=== PATIENT | male | born 1940 | race Caucasian/White ===

== ENCOUNTER → 2018-07-15 | Outpatient (REF) | payer MEDICARE ==
[2018-07-15 08:43] LABS: ALBUMIN 3.8 g/dL (3.2-5.0); ALKALINE PHOSPHATASE 97 u/l (38-126); ANION GAP 17 (6-22 (CALC)); BILIRUBIN, TOTAL 0.6 mg/dL (0.0-1.4); BUN 22 mg/dL (8-23); BUN/CREATININE RATIO 18 (12-20 (CALC)); CALCULATED LDLCHOLESTEROL 48 mg/dL (62-129 (CALC)); CARBON DIOXIDE 26 mmol/l (22-30); CHLORIDE 100 mmol/l (95-108); CHOLESTEROL HDL RATIO 3.3 (<4.4 (CALC)); CREATININE 1.2 mg/dL (0.7-1.3); GFR 58 ML/MIN (>=60 (CALC)); GFR FOR AFR.AMER. > 60 ML/MIN (>=60 (CALC)); HDL CHOLESTEROL 30 mg/dL (>=40); SGOT/AST 21 u/l (19-48); SODIUM 138 mmol/l (137-146); TOTAL CHOLESTEROL 101 mg/dl (0-199); TOTAL PROTEIN 6.3 g/dL (6.3-8.2); TOTAL TRIGLYCERIDES 112 mg/dl (30-149); VLDL CHOLESTROL 22 mg/dl (0-38 (CALC))
== END | disposition home or self-care (01) ==
LOC: LAB 06:46
PROVIDERS: ATTEND Nurse Practitioner Adult Health
DX: E11.59 Type 2 diabetes mellitus with other circulatory complications (principal)

== ENCOUNTER 2020-02-04 09:55 | Emergency (ER) | payer MEDICARE ==
[~2020-02-04] VITALS: Ht 167.6 cm; Wt 77.0 kg
[~2020-02-04 09:55] MED LIST: ATORVASTATIN CA40 MG PO; CENTRUM SILVER ULTR1 PO; COREG25 MG PO; EQ ASPIRIN ADUL81 MG PO; FOLATE400 MCG PO; GLIPIZIDE5 MG PO; IRON (FERROUS S50 MG PO; LISINOPRIL20 MG PO; METFORMIN500 M2 PO; NORVASC2.5 M1 PO; TURMERI1 PO; TYLENOL PM PO
[2020-02-04 11:35] VITALS: BP 176/78
== END 2020-02-04 12:34 | disposition left against medical advice (07) ==
LOC: ED 09:55
DX: R07.89 Other chest pain (principal); E11.9 Type 2 diabetes mellitus without complications; I10 Essential (primary) hypertension; Z95.1 Presence of aortocoronary bypass graft; Z79.84 Long term (current) use of oral hypoglycemic drugs; Z91.19 Patient's noncompliance with other medical treatment and regimen

== ENCOUNTER 2020-10-14 17:04 | Emergency (ER) | payer MEDICARE ==
[~2020-10-14] VITALS: Ht 167.6 cm; Wt 77.2 kg
[2020-10-14 18:41] VITALS: BP 152/98
== END 2020-10-14 18:28 | disposition home or self-care (01) ==
LOC: ED 17:04
DX: T81.31XA Disruption of external operation (surgical) wound, not elsewhere classified, initial encounter (principal); E11.9 Type 2 diabetes mellitus without complications; Y83.8 Other surgical procedures as the cause of abnormal reaction of the patient, or of later complication, without mention of misadventure at the time of the procedure; Z85.820 Personal history of malignant melanoma of skin; Z79.84 Long term (current) use of oral hypoglycemic drugs

== ENCOUNTER 2020-12-10 11:24 | Emergency (ER) | payer MEDICARE ==
[2020-12-10] MEDS ORDERED: KEFLEX500 MG PO (12:23)
[2020-12-10 12:30] VITALS: BP 152/90
== END 2020-12-10 12:30 | disposition home or self-care (01) ==
LOC: ED 11:24
DX: L02.214 Cutaneous abscess of groin (principal); I10 Essential (primary) hypertension; E11.9 Type 2 diabetes mellitus without complications; Z79.84 Long term (current) use of oral hypoglycemic drugs; Z85.820 Personal history of malignant melanoma of skin

== ENCOUNTER 2022-01-30 21:27 | Emergency (ER) | payer MEDICARE ==
[~2022-01-30] VITALS: Ht 167.6 cm; Wt 75.0 kg
[~2022-01-30 21:27] MED LIST changes: +KEFLEX500 MG PO
[2022-01-31 02:00] VITALS: BP 110/76
== END 2022-01-31 08:00 | disposition home or self-care (01) ==
LOC: ED 21:27
DX: R68.83 Chills (without fever) (principal); C61 Malignant neoplasm of prostate; C79.9 Secondary malignant neoplasm of unspecified site; I10 Essential (primary) hypertension; E11.9 Type 2 diabetes mellitus without complications; X38.XXXA Flood, initial encounter; X37.0XXA Hurricane, initial encounter; Y92.810 Car as the place of occurrence of the external cause

== ENCOUNTER 2022-08-27 07:44 | Emergency (ER) | payer MEDICARE ==
[~2022-08-27] VITALS: Ht 167.6 cm; Wt 70.3 kg
[2022-08-27 09:47] LABS: URINE BILIRUBIN - DIPSTICK SMALL (NEGATIVE); URINE BLOOD DIPSTICK LARGE (NEGATIVE); URINE GLUCOSE - DIPSTICK 100 mg/dL (NEGATIVE); URINE KETONE TRACE mg/dL (NEGATIVE); URINE LEUK ESTERASE TRACE (NEGATIVE); URINE PH 6.5 (4.5-8.0); URINE PROTEIN - DIPSTICK >=300 mg/dL (NEG-TRACE)
[2022-08-27 09:48] LABS: URINE BACTERIA FEW hpf; URINE COLOR RED; URINE NITRITE - DIPSTICK POSITIVE (Negative); URINE RBC TNTC RBC/hpf (0-5); URINE WBC 0-2 WBC/hpf (0-5)
[2022-08-27] MEDS ORDERED: CIPROFLOXACN500 MG PO (11:44)
[2022-08-27 12:00] VITALS: BP 167/86
== END 2022-08-27 12:16 | disposition home or self-care (01) ==
LOC: ED 07:44
PROVIDERS: Family Medicine
PROC: 0T9B70Z Drainage of Bladder with Drainage Device, Via Natural or Artificial Opening (ICD-10-PCS; principal; 2022-08-27)
DX: R31.9 Hematuria, unspecified (principal); N32.89 Other specified disorders of bladder; R33.9 Retention of urine, unspecified; I10 Essential (primary) hypertension; E11.9 Type 2 diabetes mellitus without complications

== ENCOUNTER 2022-09-04 15:33 | Emergency (ER) | payer MEDICARE ==
[~2022-09-04] VITALS: Ht 167.6 cm; Wt 70.3 kg
[2022-09-04] VITALS (15 sets, daily range): BP systolic 95–135; BP diastolic 56–77
[~2022-09-04 15:33] MED LIST changes: +AMLODIPINE BESYL5 MG PO; +ASPIRINCHW 81MG PO; +B121000 MC1 PO; +CENTRUM SILVER PO; +CIPROFLOXACN500 MG PO; +ERLEADA60 MG PO; +FERRAPLUS 90 PO; +FOLIC ACID1 MG PO; +GLIPIZIDE10 M3 PO; +LIPITOR80 M1 PO; +REPAGLINIDE2 MG PO; +TAMSULOSIN0.4 MG PO
[2022-09-04 16:46] LABS: BASO% 0.3 % (0-3); EOS% 5.6 % (0-8); IMMATURE GRANULOCYTES 0.9 % (0.0-5.0); LYMPH% 13.2 % (15-41); MEAN CELL VOLUME 97.9 fL CALC (80.0-100.0); MEAN CORPUSCULAR HGB 30.6 pG CALC (26.0-32.0); MEAN CORPUSCULAR HGB CONC 31.3 g/dL CAL (32.0-36.0); MONO% 8.8 % (2-13); NEUT# 6.4 thou/uL (1.82-7.42); NEUT% 71.2 % (42-76); RED BLOOD COUNT 3.27 mill/uL (4.70-6.10); RED CELL DISTRI WIDTH 14.4 % (11.5-15.5)
[2022-09-04 17:09] LABS: ALBUMIN 3.5 g/dL (3.2-5.0); CREATININE 1.4 mg/dL (0.7-1.3); POTASSIUM 4.5 mmol/l (3.5-5.1); TOTAL PROTEIN 6.2 g/dL (6.3-8.2)
== END 2022-09-04 20:11 | disposition home or self-care (01) ==
LOC: ED 15:33
PROVIDERS: Family Medicine
PROC: 0T2BX0Z Change Drainage Device in Bladder, External Approach (ICD-10-PCS; principal; 2022-09-04)
DX: R31.9 Hematuria, unspecified (principal); I10 Essential (primary) hypertension; E11.9 Type 2 diabetes mellitus without complications; Z85.46 Personal history of malignant neoplasm of prostate; Z95.1 Presence of aortocoronary bypass graft; Z95.5 Presence of coronary angioplasty implant and graft; Z79.84 Long term (current) use of oral hypoglycemic drugs; Z96.0 Presence of urogenital implants

== ENCOUNTER 2022-12-07 15:26 | Emergency (ER) | payer MEDICARE ==
[2022-12-07] VITALS (7 sets, daily range): BP systolic 124–150; BP diastolic 65–76
[~2022-12-07] VITALS: Ht 167.6 cm; Wt 70.0 kg
[2022-12-07] MEDS ORDERED: HYDROCO/APAP1 TA9 PO (18:47)
== END 2022-12-07 19:30 | disposition home or self-care (01) ==
LOC: ED 15:26
DX: S32.019A Unspecified fracture of first lumbar vertebra, initial encounter for closed fracture (principal); I10 Essential (primary) hypertension; E11.9 Type 2 diabetes mellitus without complications; C79.51 Secondary malignant neoplasm of bone; W18.30XA Fall on same level, unspecified, initial encounter; Y92.481 Parking lot as the place of occurrence of the external cause; Z85.46 Personal history of malignant neoplasm of prostate; Z79.84 Long term (current) use of oral hypoglycemic drugs; Z95.5 Presence of coronary angioplasty implant and graft; Z95.1 Presence of aortocoronary bypass graft